=== PATIENT | male | born 2005 | race American Indian/Alaskan Native ===

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

== ENCOUNTER 2023-04-08 17:03 | Emergency (ER) | payer MEDICAID | END 2023-04-08 20:46 | disposition home or self-care (01) | LOC: DL.ED 17:03 | DX: S20.212A Contusion of left front wall of thorax, initial encounter (principal); W50.0XXA Accidental hit or strike by another person, initial encounter | CPT/HCPCS: 71101-LT; 99282; 99283 ==

== ENCOUNTER 2023-07-04 01:15 | Emergency (ER) | payer MEDICAID ==
[2023-07-04] MEDS: OLANZapine 10 MG Vial IM ONE (01:15)
[2023-07-04] MEDS: Sodium Chloride 0.9% 10 ML Syringe FLUSH PRN (01:49)
[2023-07-04 02:16] LABS: BASOPHILS PERCENT AUTO 0.2 % (0.0-1.0); EOSINOPHILS PERCENT AUTO 0.5 % (1.0-3.0); HEMATOCRIT 46.5 % (40.0-54.0); HEMOGLOBIN 16.1 g/dL (14.0-18.0); LYMPHOCYTES PERCENT AUTO 14.1 % (20.5-50.1); MEAN CORPUSCULAR HEMOGLOBIN 28.9 pg (27.0-34.0); MEAN CORPUSCULAR HGB CONC 34.6 g/dL (33.0-35.0); MEAN CORPUSCULAR VOLUME 83.3 fL (80-100); MONOCYTES PERCENT AUTO 3.4 % (2-8); NEUTROPHILS PERCENT AUTO 81.8 % (42.2-75.2); PLATELET COUNT,PLT 366 10^3/uL (150-450); RED BLOOD CELL COUNT 5.58 10^6/uL (4.6-6.2); WHITE BLOOD CELL COUNT,WBC 8.8 10^3/uL (5.0-10.0)
[2023-07-04 02:36] LABS: A/G RATIO 0.9; ALANINE AMINOTRANSFERASE,ALT 23 U/L (16-63); ALBUMIN 4.2 g/dL (3.4-5.0); ALKALINE PHOSPHATASE 359 U/L (46-116); ANION GAP 17.9 mEq/L (7-13); ASPARTATE AMNIOTRANSFERASE,AST 19 U/L (15-37); BILIRUBIN TOTAL 0.5 mg/dL (0.2-1.0); BLOOD UREA NITROGEN,BUN 14 mg/dL (7-18); BUN/CREATININE RATIO 16.1 (No establ ref range); CALCIUM 8.2 mg/dL (8.5-10.1); CARBON DIOXIDE,CO2 23 mmol/L (21-32); CHLORIDE,CL 105 mmol/L (98-107); CREATININE 0.87 mg/dL (0.70-1.30); GLUCOSE RANDOM 129 mg/dL (70-99); POTASSIUM,K 2.9 mmol/L (3.5-5.1); PROTEIN TOTAL,TP 8.7 g/dL (6.4-8.2); SODIUM,NA 143 mmol/L (136-145)
[2023-07-04 02:40] LABS: ESTIMATED GFR 127 mL/min (>=60); ETHANOL BLOOD MEDICAL 313 mg/dL (0)
[2023-07-04 03:02] LABS: AMPHETAMINES,URINE NEGATIVE (NEGATIVE); BARBITURATES,URINE NEGATIVE (NEGATIVE); BENZODIAZEPINE,URINE NEGATIVE (NEGATIVE); MDMA (ECSTASY), URINE NEGATIVE (NEGATIVE); METHADONE,URINE NEGATIVE (NEGATIVE); METHAMPHETAMINES,URINE POSITIVE (NEGATIVE); OPIATES,URINE NEGATIVE (NEGATIVE); OXYCODONE,URINE NEGATIVE (NEGATIVE); PHENCYCLIDINE,URINE NEGATIVE (NEGATIVE); TCA,URINE NEGATIVE (NEGATIVE)
[2023-07-04] MEDS ORDERED: Potassium Chloride 10 MEQ Tab.ER PO ONE (03:15)
[2023-07-04] MEDS: NS with KCl 40mEq 1,000 ML IV SCH (03:27)
== END 2023-07-04 09:00 | disposition left against medical advice (07) ==
LOC: DL.ED 01:15
DX: F10.121 Alcohol abuse with intoxication delirium (principal); E87.6 Hypokalemia; F15.90 Other stimulant use, unspecified, uncomplicated; F12.10 Cannabis abuse, uncomplicated; S80.811A Abrasion, right lower leg, initial encounter; R45.6 Violent behavior; M54.2 Cervicalgia; Y90.8 Blood alcohol level of 240 mg/100 ml or more; Y04.0XXA Assault by unarmed brawl or fight, initial encounter
CPT/HCPCS: 36415; 70450; 72125; 80053; 80305; 80307; 83735; 85025; 96365; 96366; 96372; 99285; J2405; J3480; J3490

== ENCOUNTER 2023-11-27 14:27 | Emergency (ER) | payer OTHER, MEDICAID ==
[2023-11-27 14:55] LABS: HEMATOCRIT 51.5 % (40.0-54.0); HEMOGLOBIN 17.8 g/dL (14.0-18.0); MEAN CORPUSCULAR HEMOGLOBIN 33.5 pg (27.0-34.0); MEAN CORPUSCULAR HGB CONC 34.6 g/dL (33.0-35.0); MEAN CORPUSCULAR VOLUME 96.8 fL (80-100); PLATELET COUNT,PLT 261 10^3/uL (150-450); RED BLOOD CELL COUNT 5.32 10^6/uL (4.6-6.2); WHITE BLOOD CELL COUNT,WBC 12.1 10^3/uL (5.0-10.0)
[2023-11-27 15:07] LABS: ALANINE AMINOTRANSFERASE,ALT 28 U/L (16-63); ALKALINE PHOSPHATASE 102 U/L (46-116); ANION GAP 16.4 mEq/L (7-13); ASPARTATE AMNIOTRANSFERASE,AST 32 U/L (15-37); BILIRUBIN TOTAL 1.7 mg/dL (0.2-1.0); BLOOD UREA NITROGEN,BUN 5 mg/dL (7-18); BUN/CREATININE RATIO 5.1 (No establ ref range); CALCIUM 9.2 mg/dL (8.5-10.1); CARBON DIOXIDE,CO2 23 mmol/L (21-32); CHLORIDE,CL 105 mmol/L (98-107); CREATININE 0.98 mg/dL (0.70-1.30); ETHANOL BLOOD MEDICAL 109 mg/dL (0); GLUCOSE RANDOM 92 mg/dL (70-99); LIPASE 18 U/L (16-77); POTASSIUM,K 3.4 mmol/L (3.5-5.1); PROTEIN TOTAL,TP 7.9 g/dL (6.4-8.2); SODIUM,NA 141 mmol/L (136-145)
[2023-11-27 15:10] LABS: BASOPHILS PERCENT AUTO 0.2 % (0.0-1.0); EOSINOPHILS PERCENT AUTO 0.6 % (1.0-3.0); LYMPHOCYTES PERCENT AUTO 23.2 % (20.5-50.1)
[2023-11-27 15:15] LABS: ESTIMATED GFR 113 mL/min (>=60)
[2023-11-27] MEDS: Iopamidol 612 MG/ML 100 ML Bottle IVPUSH ONE (15:16)
[2023-11-27] MEDS: Tranexamic Acid 1,000 MG in Sodium Chloride 0.9% 100 ML IV SCH (15:21)
[2023-11-27] MEDS: Sodium Chloride 0.9% 1,000 ML IV ONE (15:23)
[2023-11-27 15:27] LABS: INR 1.1 (0.9-1.2); PROTHROMBIN TIME 11.1 SEC (9.0-12.0); PTT,PARTIAL THROMBOPLSTIN TIME 27.2 SEC (22.0-34.0)
[2023-11-27] MEDS: Ondansetron 4 MG/2 ML SDV ONE (15:36)
[2023-11-27] MEDS: Ondansetron 4 MG/2 ML SDV IVPUSH ONE (15:38)
[2023-11-27 15:42] LABS: LYMPHOCYTES PERCENT MAN 21 % (20-50); MONOCYTES PERCENT MAN 5 % (2-8); SEG NEUTROPHILS PERCENT MAN 74 % (42-75)
[2023-11-27] MEDS: Diphtheria,Pertussis(Acell),Tetanus Vaccine 0.5 ML Syringe IM ONE (15:42)
[2023-11-27] MEDS: ceFAZolin 2 GM Vial IVPUSH ONE (15:43)
[2023-11-27 15:51] LABS: LACTIC ACID 5.3 mmol/L (0.4-2.0)
[2023-11-27] MEDS: fentaNYL 100 MCG/2 ML SDV IVPUSH ONE (15:57)
== END 2023-11-27 15:55 ==
LOC: DL.ED 14:27
DX: S42.432A Displaced fracture (avulsion) of lateral epicondyle of left humerus, initial encounter for closed fracture (principal); S01.111A Laceration without foreign body of right eyelid and periocular area, initial encounter; R41.82 Altered mental status, unspecified; Z23 Encounter for immunization; J45.909 Unspecified asthma, uncomplicated; V89.2XXA Person injured in unspecified motor-vehicle accident, traffic, initial encounter
CPT/HCPCS: 36415; 70450; 71045; 71260; 72125; 73060; 73080; 74177; 80053; 80307; 83605; 83690; 84484; 85025; 85610; 85730; 86850; 86900; 86901; 90471; 90715; 93005; 93010; 96374; 96375; 99285; 99291; J0690; J2405; J3010; J3490; J7030; Q9967

== ENCOUNTER 2024-01-16 05:56 | Emergency (ER) | payer OTHER, MEDICAID ==
[2024-01-16 05:45] LABS: BASOPHILS PERCENT AUTO 0.2 % (0.0-1.0); EOSINOPHILS PERCENT AUTO 0.4 % (1.0-3.0); HEMATOCRIT 43.7 % (40.0-54.0); HEMOGLOBIN 14.6 g/dL (14.0-18.0); LYMPHOCYTES PERCENT AUTO 6.8 % (20.5-50.1); MEAN CORPUSCULAR HEMOGLOBIN 31.6 pg (27.0-34.0); MEAN CORPUSCULAR HGB CONC 33.4 g/dL (33.0-35.0); MEAN CORPUSCULAR VOLUME 94.6 fL (80-100); NEUTROPHILS PERCENT AUTO 86.6 % (42.2-75.2); PLATELET COUNT,PLT 324 10^3/uL (150-450); RED BLOOD CELL COUNT 4.62 10^6/uL (4.6-6.2); WHITE BLOOD CELL COUNT,WBC 9.7 10^3/uL (5.0-10.0)
[2024-01-16 06:02] LABS: PROTHROMBIN TIME 10.4 SEC (9.0-12.0)
[2024-01-16 06:04] LABS: ALBUMIN 4.3 g/dL (3.4-5.0); ANION GAP 22.8 mEq/L (7-13); BILIRUBIN TOTAL 0.7 mg/dL (0.2-1.0); BUN/CREATININE RATIO 9.7 (No establ ref range); CREATININE 1.34 mg/dL (0.70-1.30); EST CRCL DRUG DOSING (CG) 80.17 mL/min; POTASSIUM,K 3.8 mmol/L (3.5-5.1); PROTEIN TOTAL,TP 8.6 g/dL (6.4-8.2)
[2024-01-16] MEDS: Lactated Ringers 1,000 ML IV SCH (06:44)
== END 2024-01-16 09:00 | disposition home or self-care (01) ==
LOC: DL.ED 05:56
DX: M25.522 Pain in left elbow (principal); V89.2XXA Person injured in unspecified motor-vehicle accident, traffic, initial encounter
CPT/HCPCS: 36415; 70450; 72125; 73090; 80053; 80307; 83605; 85025; 85610; 96360; 99283; 99285; J7120